=== PATIENT | male | born 1970 | race Caucasian/White ===

== ENCOUNTER 2018-04-09 15:03 | Emergency (ER) | payer SELFPAY ==
[2018-04-09] MEDS ORDERED: TETANUS & DIPHTHERIA TOX,ADULT 0.5 ML VIAL ONE (15:25)
--- NOTE | 2018-04-09 15:29 | RAD REPORT ---
EXAM DESCRIPTION: RAD - Hand Left 3 View - 04/09/2018 3:24 pm CLINICAL HISTORY: Foreign body puncture injury COMPARISON: None. FINDINGS: A large nail traverses the dorsum of the hand soft tissues. An underlying fracture is not seen. Moderate soft tissue swelling is evident.
[2018-04-09] MEDS ORDERED: LIDOCAINE 1% 20 ML MDV ONE (15:36)
--- NOTE | 2018-04-09 15:58 | EDPHYS ---
Physician Documentation [facility] Name: Rashawn Ashby Age: 47 yrs Sex: Male : 1970 Arrival Date: 04/09/2018 Time: 15:05 Bed 27 Private MD: None, None ED Physician Wicho Schaffer HPI: 04/09 15:59 This 47 yrs old Male presents to ER via Ambulatory with complaints of Nail in kb hand. 16:02 The patient or guardian reports the patient has a suspected foreign body, of the left kb hand. The reported likely foreign body is a nail. Onset: The symptoms/episode began/occurred just prior to arrival. Current symptoms: foreign body sensation. Treatment Prior to Arrival: none. The patient has not experienced similar symptoms in the past. The patient has not recently seen a physician. Historical: - Allergies: 15:12 NKA; iw - Home Meds: 15:12 Adderall XR Oral [Active]; iw - PMHx: 15:12 None; iw - PSHx: 15:12 None; iw - Immunization history:: Adult Immunizations Last tetanus immunization: < 10 years ago. - Social history:: Smoking status: Patient uses tobacco products, smokes one-half pack cigarettes per day. ROS: 16:02 Constitutional: Negative for fever, chills, and weight loss, Cardiovascular: Negative kb for chest pain, palpitations, and edema, Respiratory: Negative for shortness of breath, cough, wheezing, and pleuritic chest pain, Abdomen/GI: Negative for abdominal pain, nausea, vomiting, diarrhea, and constipation, MS/Extremity: Negative for injury and deformity, Neuro: Negative for headache, weakness, numbness, tingling, and seizure. 16:02 Skin: Positive for puncture, of the dorsum of left hand, nail stuck through and across dorsum of left hand. Exam: 16:02 Constitutional: This is a well developed, well nourished patient who is awake, alert, kb and in no acute distress. Head/Face: Normocephalic, atraumatic. Chest/axilla: Normal chest wall appearance and motion. Nontender with no deformity. No lesions are appreciated. Cardiovascular: Regular rate and rhythm with a normal S1 and S2. No gallops, murmurs, or rubs. Normal PMI, no JVD. No pulse deficits. Respiratory: Lungs have equal breath sounds bilaterally, clear to auscultation and percussion. No rales, rhonchi or wheezes noted. No increased work of breathing, no retractions or nasal flaring. Abdomen/GI: Soft, non-tender, with normal bowel sounds. No distension or tympany. No guarding or rebound. No evidence of tenderness throughout. MS/ Extremity: Pulses equal, no cyanosis. Neurovascular intact. Full, normal range of motion. Neuro: Awake and alert, GCS 15, oriented to person, place, time, and situation. Cranial nerves II-XII grossly intact. Motor strength 5/5 in all extremities. Sensory grossly intact. Cerebellar exam normal. Normal gait. 16:02 Skin: injury, puncture(s), that are deep, of the dorsum of left hand, nail through and across dorsum of left hand. Vital Signs: 15:13 BP 142 / 94; Pulse 76; Resp 18 S; Temp 98.2; Pulse Ox 95% on R/A; Weight 95.25 kg; iw Height 6 ft. 0 in. (182.88 cm); Pain 6/10; 15:57 BP 121 / 79; Pulse 74; Resp 18; Pulse Ox 100% ; tl3 15:13 Body Mass Index 28.48 (95.25 kg, 182.88 cm) iw Procedures: 15:56 Foreign Body Removal: a nail, from the left left hand, by pulled out . Dressinx4s kb were used to dress the wound, The patient tolerated the removal well. MDM: 15:06 Patient medically screened. kb 15:57 Data reviewed: vital signs, nurses notes. Data interpreted: Pulse oximetry: on room air kb is 95 %. Interpretation: normal. Counseling: I had a detailed discussion with the patient and/or guardian regarding: the historical points, exam findings, and any diagnostic results supporting the discharge/admit diagnosis, radiology results, the need for outpatient follow up, a family practitioner, to return to the emergency department if symptoms worsen or persist or if there are any questions or concerns that arise at home. 16:02 ED course: Nail removed from left hand. Nail intact.. kb 04/09 15:09 Order name: Hand Left 3 View XRAY; Complete Time: 15:33 kb Administered Medications: 15:28 Drug: Tetanus-Diphtheria Toxoid Adult 0.5 ml {Owner Oral Surgeon: [employer]. Exp: aj1 06/21/2020. Lot #: [id number]. } Route: IM; Site: right deltoid; 16:09 Follow up: Response: No adverse reaction tl3 15:59 CANCELLED (Patient Refused): Lidocaine (1 %) 1 vials 20 ml Infiltration once; to bedsidekb 16:01 Drug: KeFLEX 500 mg Route: PO; tl3 16:07 Follow up: Response: Medication administered at discharge. tl3 Disposition: 18:36 Co-signature as Attending Physician, Wicho Schaffer MD. rn Disposition: 04/09/18 15:58 Discharged to Home. Impression: Puncture wound with foreign body of left hand - FB removed. - Condition is Stable. - Discharge Instructions: Puncture Wound, Snav-hh-Eros, Foreign Body. - Prescriptions for Keflex 500 mg Oral Capsule - take 1 capsule by ORAL route every 8 hours for 10 days; 30 capsule. - Medication Reconciliation Form, Thank You Letter, Antibiotic Education, Prescription Opioid Use form. - Follow up: Emergency Department; When: As needed; Reason: Worsening of condition. Follow up: Private Physician; When: 2 - 3 days; Reason: Recheck today's complaints, Continuance of care, Re-evaluation by your physician. Signatures: Dispatcher [employer] EDPatrizia Maguire, LOG SORTING SUPERVISOR-C LOG SORTING SUPERVISOR-Ckb Mariajose Campbell RN RN aj1 Nhi Nelson RN RN iw Nieto, Roman, MD MD rn Lowrey, Tammy, RN RN tl3 Corrections: (The following items were deleted from the chart) 15:59 15:26 Lidocaine (1 %) 1 vials 20 ml Infiltration once; to bedside ordered. kb kb 15:59 15:55 Lidocaine (1 %) 1 vials 20 ml Infiltration once; to bedside given. tl3 kb 15:59 15:59 Lidocaine (1 %) 1 vials 20 ml Infiltration once; to bedside ordered. kb kb 16:08 15:58 04/09/2018 15:58 Discharged to Home. Impression: Puncture wound with foreign body tl3 of left hand - FB removed. Condition is Stable. Forms are Medication Reconciliation Form, Thank You Letter, Antibiotic Education, Prescription Opioid Use. Follow up: Emergency Department; When: As needed; Reason: Worsening of condition. Follow up: Private Physician; When: 2 - 3 days; Reason: Recheck today's complaints, Continuance of care, Re-evaluation by your physician. kb
--- NOTE | 2018-04-09 15:58 | ER ---
Nurse's Notes [facility] Name: Rashawn Ashby Age: 47 yrs Sex: Male : 1970 Arrival Date: 04/09/2018 Time: 15:05 Bed 27 Private MD: None, None Diagnosis: Puncture wound with foreign body of left hand-FB removed Presentation: 04/09 15:09 Presenting complaint: Patient states: was using a nail gum, crossed his left hand over iw the nail gun and shot nail into top of left hand, not bleeding, bruising and swelling noted to area. Transition of care: patient was not received from another setting of care. Onset of symptoms was April 09, 2018. Risk Assessment: Do you want to hurt yourself or someone else? Patient reports no desire to harm self or others. Initial Sepsis Screen: Does the patient meet any 2 criteria? No. Patient's initial sepsis screen is negative. Does the patient have a suspected source of infection? No. Patient's initial sepsis screen is negative. Care prior to arrival: None. 15:09 Method Of Arrival: Ambulatory iw 15:09 Acuity: ANURAG 4 iw Historical: - Allergies: 15:12 NKA; iw - Home Meds: 15:12 Adderall XR Oral [Active]; iw - PMHx: 15:12 None; iw - PSHx: 15:12 None; iw - Immunization history:: Adult Immunizations Last tetanus immunization: < 10 years ago. - Social history:: Smoking status: Patient uses tobacco products, smokes one-half pack cigarettes per day. Screenin:57 Abuse screen: Denies threats or abuse. Nutritional screening: No deficits noted. tl3 Tuberculosis screening: No symptoms or risk factors identified. Fall Risk None identified. Assessment: 15:56 General: Appears in no apparent distress. distressed, comfortable, Behavior is calm, tl3 cooperative, appropriate for age. Pain:. 15:57 Pain: Complains of pain in left hand. Neuro: Level of Consciousness is awake, alert, tl3 obeys commands, Oriented to person, place, time, situation, Appropriate for age. Cardiovascular: No deficits noted. Respiratory: Airway is patent Trachea midline Respiratory effort is even, unlabored, Respiratory pattern is regular, symmetrical. GI: No signs and/or symptoms were reported involving the gastrointestinal system. : No signs and/or symptoms were reported regarding the genitourinary system. EENT: No signs and/or symptoms were reported regarding the EENT system. Derm: No signs and/or symptoms reported regarding the dermatologic system. Musculoskeletal: was shot with a nail gun to the top of hand. Vital Signs: 15:13 BP 142 / 94; Pulse 76; Resp 18 S; Temp 98.2; Pulse Ox 95% on R/A; Weight 95.25 kg; iw Height 6 ft. 0 in. (182.88 cm); Pain 6/10; 15:57 BP 121 / 79; Pulse 74; Resp 18; Pulse Ox 100% ; tl3 15:13 Body Mass Index 28.48 (95.25 kg, 182.88 cm) iw ED Course: 15:05 Patient arrived in ED. mr 15:05 None, None is Private Physician. mr 15:05 Patrizia Goncalves FNP-C is [facility]. kb 15:05 Wicho Schaffer MD is Attending Physician. kb 15:11 Triage completed. iw 15:13 Arm band placed on. iw 15:24 X-ray completed. Portable x-ray completed in exam room. Patient tolerated procedure jb2 well. 15:24 Hand Left 3 View XRAY In Process Unspecified. EDMS 15:30 Destiney Glynn, RN is Primary Nurse. tl3 15:57 Patient has correct armband on for positive identification. tl3 15:57 No provider procedures requiring assistance completed. Patient did not have IV access tl3 during this emergency room visit. Administered Medications: 15:28 Drug: Tetanus-Diphtheria Toxoid Adult 0.5 ml {Collar Baster: [employer]. Exp: aj1 06/21/2020. Lot #: [id number]. } Route: IM; Site: right deltoid; 16:09 Follow up: Response: No adverse reaction tl3 15:59 CANCELLED (Patient Refused): Lidocaine (1 %) 1 vials 20 ml Infiltration once; to bedsidekb 16:01 Drug: KeFLEX 500 mg Route: PO; tl3 16:07 Follow up: Response: Medication administered at discharge. tl3 Outcome: 15:58 Discharge ordered by . kb 16:07 Discharged to home ambulatory. tl3 16:07 Condition: good 16:07 Discharge instructions given to patient, Instructed on discharge instructions, follow up and referral plans. medication usage, Demonstrated understanding of instructions, follow-up care, medications, Prescriptions given X 1. 16:08 Patient left the ED. tl3 Signatures: Dispatcher [employer] EDPatrizia Maguire, ROUTE RELIEF DRIVER-C ROUTE RELIEF DRIVER-CkMariajose Nevarez RN RN aj1 Diane Caicedo mr KelleelainearaCharlie jb2 Nhi Nelson RN RN iw Destiney Glynn RN RN tl3 Corrections: (The following items were deleted from the chart) 15:59 15:55 Lidocaine (1 %) 1 vials 20 ml Infiltration in affected area 20 ml tl3 kb 15:59 15:56 Response: No adverse reaction tl3 kb
[2018-04-09] MEDS ORDERED: CEPHALEXIN 250 MG CAP ONE (16:01)
== END 2018-04-09 16:08 | disposition home or self-care (01) ==
LOC: ER 15:03
DX: S61.442A Puncture wound with foreign body of left hand, initial encounter (principal); W29.4XXA Contact with nail gun, initial encounter; Y93.89 Activity, other specified; Y92.9 Unspecified place or not applicable; F17.210 Nicotine dependence, cigarettes, uncomplicated; Z23 Encounter for immunization
CPT/HCPCS: 90714; 99283